=== PATIENT | male | born 1930 | race Caucasian/White ===

== ENCOUNTER 2018-03-19 09:37 | Emergency (ER) | payer OTHER, MEDICARE, MEDICAID ==
[2018-03-19] MEDS ORDERED: Oxymetazoline 0.05% Nasal Spray 15 ML Bottle NAS ONE (10:38)
--- NOTE | 2018-03-19 18:30 | EDM.PDOC ---
ED HPI GENERAL MEDICAL PROBLEM - General Chief Complaint: ENT Problem Stated Complaint: BLOODY NOSE WONT STOP BLEEDING Time Seen by Provider: 03/19/18 10:35 Source of Information: Reports: Patient History Limitations: Reports: No Limitations - History of Present Illness INITIAL COMMENTS - FREE TEXT/NARRATIVE: 1 hour non-traumatic epistaxis from L nare. States has been having issues with occasion epistaxis. States he is not anticoagulated. States that he does take baby aspirin daily. Denies an frequent bleeding from other areas. Onset: Today Location: Reports: Head, Face - Related Data Allergies Allergy/AdvReac Type Severity Reaction Status Date / Time [id number]-Sfr-[id number] Reductase Allergy Cannot Verified 03/19/18 15:02 Inhibitor Remember Home Meds: Home Meds Acetaminophen [Tylenol] 650 mg PO Q6H PRN 05/24/17 [History] Aspirin 81 mg PO BRK 05/24/17 [History] Bisacodyl [Laxative] 5 mg PO Q3D PRN 05/24/17 [History] Calcium Carbonate/Vitamin D3 [Calcium Carb 500 MG] 2 each PO TID PRN 05/24/17 [ History] Cyclobenzaprine [Flexeril] 10 mg PO TID PRN 05/24/17 [History] Docusate Sodium/Sennosides [Senna Plus] 1 tab PO DAILY 05/24/17 [History] Filgrastim [Neupogen] 480 mcg IJ Q7D 05/24/17 [History] Furosemide [Lasix] 20 mg PO DAILY 05/24/17 [History] Hydrocodone/Acetaminophen [Hydrocodon-Acetaminophn 10-325] 1 - 2 tab PO Q6H PRN 05/24/17 [History] Levothyroxine [Synthroid] 50 mcg PO ACBREAKFAST 05/24/17 [History] Mirtazapine 7.5 mg PO DAILY 05/24/17 [History] Omeprazole Magnesium [Prilosec Otc] 20 mg PO BID 05/24/17 [History] Polyethylene Glycol 3350 [MiraLAX] 17 gm PO DAILY 05/24/17 [History] Simethicone 80 mg PO DAILY PRN 05/24/17 [History] Zolpidem [Ambien] 7.5 mg PO BEDTIME 05/24/17 [History] glipiZIDE [Glucotrol] 10 mg PO DAILY 05/24/17 [History] Past Medical History Cardiovascular History: Reports: Heart Failure, Hypertension Gastrointestinal History: Reports: Chronic Constipation, GERD Endocrine/Metabolic History: Reports: Diabetes, Type II, Hypothyroidism Social & Family History - Tobacco Use Smoking Status *Q: Never Smoker - Recreational Drug Use Recreational Drug Use: No ED ROS GENERAL - Review of Systems Review Of Systems: ROS reveals no pertinent complaints other than HPI. ED EXAM, GENERAL - Physical Exam Exam: See Below Exam Limited By: No Limitations General Appearance: Alert, WD/WN Nose: Other (evidence of epistaxis from L nare. Currently pack with vaseline gauze.) Course - Vital Signs Last Recorded V/S: Last Vital Signs Temp 36.6 C 03/19/18 10:20 Pulse 89 03/19/18 10:20 Resp 20 03/19/18 10:20 BP 100/56 L 03/19/18 10:20 Pulse Ox 97 03/19/18 10:20 - Orders/Labs/Meds Labs: Laboratory Tests 03/19/18 03/19/18 Range/Units 10:26 10:26 WBC 3.8 L (4.0-10.0) x10^3/uL RBC 2.28 L (4.5-6.0) x10^6/uL Hgb 9.3 L (14.0-18.0) g/dL Hct 27.6 L (40.0-52.0) % MCV 121.1 H (78.0-93.0) fL MCH 40.8 H (26.0-32.0) pg MCHC 33.7 (32.0-36.0) g/dL RDW Coeff of Sebastián 22.4 H (10.0-15.0) % Plt Count 135 (130-400) x10^3/uL Neut % (Auto) 78.1 (50.0-80.0) % Lymph % (Auto) 16.4 L (25.0-50.0) % [place] % (Auto) 4.2 (2.0-11.0) % Eos % (Auto) 0.8 (0.0-4.0) % Baso % (Auto) 0.5 (0.2-1.2) % PT 9.8 (9.6-11.4) SEC INR 0.9 L (2.0-3.5) Meds: Medications Discontinued Medications Generic Name Dose Route Start Last Admin Trade Name Adri PRN Reason Stop Dose Admin Oxymetazoline HCl 1 ml 03/19/18 10:38 03/19/18 10:40 Afrin Original 0.05% Nasal [place] ENID 03/19/18 10:39 1 ml ONETIME ONE Administration Departure - Departure Time of Disposition: 11:10 Disposition: Home, Self-Care 01 Clinical Impression: Epistaxis - Discharge Information Instructions: Nosebleed, [id number] Referrals: Augusta Centeno DO [Primary Care Provider] - Forms: ED Department Discharge Additional Instructions: Keep ribbon gauze in nose until tomorrow afternoon. Do not blow nose after it is removed, and refrain from blowing it for 48 hours. Continue with current medications. Follow-up in clinic if continuing to have episodes of bleeding. Return to ER if you have bleeding that lasts longer than 1 hour. - Assessment/Plan Plan: Keep ribbon gauze in nose until tomorrow afternoon. Do not blow nose after it is removed, and refrain from blowing it for 48 hours. Continue with current medications. Follow-up in clinic if continuing to have episodes of bleeding. Return to ER if you have bleeding that lasts longer than 1 hour.
== END 2018-03-19 11:10 | disposition home or self-care (01) ==
LOC: VM.ED 09:37
DX: R04.0 Epistaxis (principal); E11.9 Type 2 diabetes mellitus without complications; I11.0 Hypertensive heart disease with heart failure; I50.9 Heart failure, unspecified; E03.9 Hypothyroidism, unspecified; Z88.8 Allergy status to other drugs, medicaments and biological substances; Z79.899 Other long term (current) drug therapy; Z79.82 Long term (current) use of aspirin; Z79.84 Long term (current) use of oral hypoglycemic drugs
CPT/HCPCS: 30901; 36415; 85025; 85610; 99283; 99283-GF; A9270-GY

== ENCOUNTER 2019-06-26 20:57 | Emergency (ER) | payer MEDICARE, OTHER ==
--- NOTE | 2019-06-26 21:24 | EDM.PDOC ---
ED HPI GENERAL MEDICAL PROBLEM - General Chief Complaint: General Stated Complaint: general Time Seen by Provider: 06/26/19 20:57 Source of Information: Reports: Patient, EMS - History of Present Illness INITIAL COMMENTS - FREE TEXT/NARRATIVE: Patient comes into the emergency department with complaints of a fall. Patient states that he was at home and does not remember why he fell. Patient does have extensive history of getting dizzy and falling frequently. He often is able to get up on his own. However, when nursing personnel on scene they noticed that he did have some blood behind his right ear. She ended up calling EMS for services. EMS transported the patient and stated they did not have any concerns with range of motion or CMS. Patient has been alert and oriented for them entire time. Unsure if he did lose consciousness. Patient does remember the events leading up to his fall minutes after the fall. Patient currently denies any pain and states his only concerns are the skin tears that resulted. Patient denies any chest pain, SOB, pain, vision changes, abdominal pain, or peripheral edema. Onset: Today Quality: Reports: Ache Severity: Moderate Improves with: Reports: None Worsens with: Reports: None Associated Symptoms: Reports: No Other Symptoms left shoulder/left upper back Pain Score (Numeric/FACES): 5 - Related Data Allergies Allergy/AdvReac Type Severity Reaction Status Date / Time Mwjrsrx-Wlw-Sdm Reductase Allergy Cannot Verified 06/26/19 23:59 Inhibitor Remember Home Meds: Home Meds Acetaminophen [Tylenol] 650 mg PO Q6H PRN 05/24/17 [History] Aspirin 81 mg PO BRK 05/24/17 [History] Bisacodyl [Laxative] 5 mg PO Q3D PRN 05/24/17 [History] Calcium Carbonate/Vitamin D3 [Calcium Carb 500 MG] 2 each PO TID PRN 05/24/17 [ History] Cyclobenzaprine [Flexeril] 10 mg PO TID PRN 05/24/17 [History] Docusate Sodium/Sennosides [Senna Plus] 1 tab PO DAILY 05/24/17 [History] Filgrastim [Neupogen] 480 mcg IJ Q7D 05/24/17 [History] Furosemide [Lasix] 20 mg PO DAILY 05/24/17 [History] Hydrocodone/Acetaminophen [Hydrocodon-Acetaminophn 10-325] 1 - 2 tab PO Q6H PRN 05/24/17 [History] Levothyroxine [Synthroid] 50 mcg PO ACBREAKFAST 05/24/17 [History] Mirtazapine 7.5 mg PO DAILY 05/24/17 [History] Omeprazole Magnesium [Prilosec Otc] 20 mg PO BID 05/24/17 [History] Polyethylene Glycol 3350 [MiraLAX] 17 gm PO DAILY 05/24/17 [History] Simethicone 80 mg PO DAILY PRN 05/24/17 [History] Zolpidem [Ambien] 7.5 mg PO BEDTIME 05/24/17 [History] glipiZIDE [Glucotrol] 10 mg PO DAILY 05/24/17 [History] Past Medical History Cardiovascular History: Reports: Heart Failure, Hypertension Gastrointestinal History: Reports: Chronic Constipation, GERD Endocrine/Metabolic History: Reports: Diabetes, Type II, Hypothyroidism ED ROS GENERAL - Review of Systems Review Of Systems: See Below Constitutional: Reports: No Symptoms HEENT: Reports: No Symptoms Respiratory: Reports: No Symptoms Cardiovascular: Reports: No Symptoms Musculoskeletal: Reports: No Symptoms Skin: Reports: No Symptoms Neurological: Reports: No Symptoms Psychiatric: Reports: No Symptoms ED EXAM, GENERAL - Physical Exam Exam: See Below Exam Limited By: No Limitations General Appearance: Alert, WD/WN, No Apparent Distress Eye Exam: Bilateral Eye: EOMI, PERRL Ear Exam: Bilateral Ear: Auricle Normal, Canal Normal, TM normal Nose: Normal Inspection, Normal Mucosa, No Blood Throat/Mouth: Normal Inspection, Normal Lips, Normal Teeth, Normal Gums Head: Atraumatic, Normocephalic Neck: Normal Inspection, Supple, Non-Tender, Full Range of Motion Respiratory/Chest: No Respiratory Distress, Lungs Clear, Normal Breath Sounds, No Accessory Muscle Use, Chest Non-Tender Cardiovascular: Normal Peripheral Pulses, Regular Rate, Rhythm, No Edema GI/Abdominal: Normal Bowel Sounds, Soft, Non-Tender Neurological: Alert, Oriented, CN II-XII Intact, Normal Cognition Psychiatric: Normal Affect, Normal Mood Skin Exam: Other (skin tear- right elbow 3cm , left elbow 3cm , left forearm 2cm , right behind ear 2cm , left shoulder 2cm, left shoulder 12x14 ) Course - Vital Signs Last Recorded V/S: Last Vital Signs Temp 35.7 C 06/26/19 21:00 Pulse 71 06/26/19 21:00 Resp 16 06/26/19 21:00 BP 119/54 L 06/26/19 21:00 Pulse Ox 95 06/26/19 21:00 - Orders/Labs/Meds Orders: Active Orders 24 hr Category Date Time Status Chest 1V Frontal [CR] Stat Exams 06/26/19 23:50 Taken Labs: Laboratory Tests 06/26/19 06/26/19 06/26/19 Range/Units 22:30 22:30 22:30 WBC 8.2 (4.0-10.0) x10^3/uL RBC 2.33 L (4.5-6.0) x10^6/uL Hgb 9.6 L (14.0-18.0) g/dL Hct 29.0 L (40.0-52.0) % MCV 124.5 H D (78.0-93.0) fL MCH 41.2 H (26.0-32.0) pg MCHC 33.1 (32.0-36.0) g/dL RDW Coeff of Sebastián 16.3 H (10.0-15.0) % Plt Count 104 L (130-400) x10^3/uL Neut % (Auto) 92.8 H (50.0-80.0) % Lymph % (Auto) 4.8 L (25.0-50.0) % [place] % (Auto) 2.3 (2.0-11.0) % Eos % (Auto) 0.0 (0.0-4.0) % Baso % (Auto) 0.1 L (0.2-1.2) % PT 11.0 (10.0-12.8) SEC INR 1.0 L (2.0-3.5) Sodium 139 (136-145) mmol/L Potassium 4.6 (3.5-5.1) mmol/L Chloride 101 (98-107) mmol/L Carbon Dioxide 30 (21-32) mmol/L Anion Gap 12.6 (10-20) mmol/L BUN 47 H (7-18) mg/dL Creatinine 1.1 (0.70-1.30) mg/dL Est Cr Clr Drug Dosing TNP Estimated GFR (MDRD) > 60 Glucose 83 (74-106) mg/dL Calcium 8.5 (8.5-10.1) mg/dL Corrected Calcium 9.54 (8.5-10.1) mg/dL Total Bilirubin 1.3 H (0.2-1.0) mg/dL AST 74 H (15-37) U/L ALT 87 H (16-63) U/L Alkaline Phosphatase 399 H (46-116) U/L Troponin I < 0.017 (<=0.056) ng/mL Total Protein 5.7 L (6.4-8.2) g/dL Albumin 2.7 L (3.4-5.0) g/dL Globulin 3.0 Albumin/Globulin Ratio 0.90 Departure - Departure Time of Disposition: 23:30 Disposition: DC/Tfer to Acute Hospital 02 Condition: Good Clinical Impression: Skin tear Fall Qualifiers: Encounter type: initial encounter Qualified Code(s): W19.XXXA - Unspecified fall, initial encounter Syncopal episodes Qualifiers: Syncope type: unspecified Qualified Code(s): R55 - Syncope and collapse - Discharge Information *PRESCRIPTION DRUG MONITORING PROGRAM REVIEWED*: Not Applicable *COPY OF PRESCRIPTION DRUG MONITORING REPORT IN PATIENT JOHN: Not Applicable Instructions: Skin Tear Care, [id number], Syncope, [id number] Referrals: Augusta Centeno DO [Primary Care Provider] - Forms: ED Department Discharge, Interfacility Transfer LUISA Additional Instructions: 1. dressing changes to skin tears bid until crusting/scabbing formation 2. Use your walker at all times 3. Turn and get up from the laying or seated position slowly 4. activity and diet as tolerated 5. Follow up in the clinic next week to reassess skin tears 6. Can use [id number] medications to help with any pain or discomfort 7. Call with any questions or concerns Sepsis Event Note - Focused Exam Vital Signs: Vital Signs Temp Pulse Resp BP Pulse Ox 06/26/19 21:00 35.7 C 71 16 119/54 L 95 Date Exam was Performed: 06/27/19 Time Exam was Performed: 01:24 - My Orders Last 24 Hours: My Active Orders 06/26/19 23:50 Chest 1V Frontal [CR] Stat - Assessment/Plan Last 24 Hours: My Active Orders 06/26/19 23:50 Chest 1V Frontal [CR] Stat Assessment:: 1. fall 2. multiple skin tears 3. Syncopal episode 4. Chronic anemia Plan: 1. CT of head completed 2. Labs ordered in the ER. Results reviewed with the patient 3. Did offer to keep the patient over night for observation and he declined stating his labs are about at his baseline and he is not in any pain or discomfort. After ambulating he decided maybe it would be best to be admitted for he was experiencing dizziness still. 4. Pt does request the PR if possible for he does most of his care within their system [facility] in [place] was contacted at [phone] for possible admission. They request records to be sent and to complete a chest xray and they would return a phone call once a decision is made. 5. Pt did request for supper for he states he did not eat is super before falling and he is concerned his blood sugar may drop. 6. chest x-ray completed in the ER. Results reviewed with the patient 7. [phone] Call back from [facility] with acceptance for transfer.
--- NOTE | 2019-06-26 22:26 | CT ---
[id number] CT/CT Head WO IV EXAM: CT Head WO IV CLINICAL DATA: TRAUMA COMPARISON: NO PREVIOUS SIMILAR EXAM IS AVAILABLE FOR COMPARISON. FINDINGS: There is no mass or mass effect. There is no hemorrhage or hydrocephalus. There are no extra-axial fluid collections. There are no sites of abnormal attenuation. IMPRESSION: NO PLAIN CT EVIDENCE OF ACUTE INTRACRANIAL PROCESS. Jorge Luis Charles MD 06/26/19 0139 Thank you for allowing us to participate in the care of your patient.
[2019-06-26 22:59] LABS: CHLORIDE,CL 101 mmol/L (98-107); SODIUM,NA 139 mmol/L (136-145)
[2019-06-26 23:01] LABS: ANION GAP 12.6 mmol/L (10-20)
--- NOTE | 2019-06-27 08:44 | CR ---
[id number] RAD/RAD Chest PA or AP 1V EXAM: SINGLE VIEW CHEST. INDICATION: TRAUMA COMPARISON: CORRELATION IS MADE WITH THE EXAM OF MAY 24, 2017 FINDINGS: Bibasilar hypoventilatory changes are seen The cardiomediastinal contour is moderately enlarged IMPRESSION: NO ACUTE PROCESS Jorge Luis Charles MD 06/27/19 0843 Thank you for allowing us to participate in the care of your patient.
== END 2019-06-27 01:50 | disposition short-term general hospital (02) ==
LOC: VM.ED 20:57
DX: S51.812A Laceration without foreign body of left forearm, initial encounter (principal); S51.012A Laceration without foreign body of left elbow, initial encounter; S41.012A Laceration without foreign body of left shoulder, initial encounter; S01.81XA Laceration without foreign body of other part of head, initial encounter; R55 Syncope and collapse; I10 Essential (primary) hypertension; E11.9 Type 2 diabetes mellitus without complications; Z88.8 Allergy status to other drugs, medicaments and biological substances; Z79.899 Other long term (current) drug therapy; Z79.82 Long term (current) use of aspirin; W19.XXXA Unspecified fall, initial encounter
CPT/HCPCS: 36415; 70450; 71045; 80053; 84484; 85025; 85610; 99283-GF; 99285-25